=== PATIENT | male | born 1975 | race Caucasian/White ===

== ENCOUNTER 2018-01-27 19:31 | Emergency (ER) | payer OTHER ==
[~2018-01-27] VITALS: Ht 175.3 cm; Wt 136.1 kg
[~2018-01-27 19:31] MED LIST: ALBU90OI INH; AZIT250 PO; BUPR100 PO; CLARITIN10 MG PO; CYCL10 PO; Cipro500 MG PO; Cyclobenzaprine5 MG PO; HYDACE10B PO; Metformin HCl500 MG PO; NAPR500 PO; Norco 5-325 Ta1 EACH PO; TYLENOL PRN
[2018-01-27 20:14] LABS: Influenza A Negative (NEGATIVE); Influenza B Negative (NEGATIVE)
[2018-01-27] MEDS ORDERED: PRED20 PO (21:52)
[2018-01-27] MEDS ORDERED: BENZ100A PO (21:52)
[2018-01-27] MEDS ORDERED: Zithromax250 MG PO (21:52)
== END 2018-01-27 22:00 | disposition home or self-care (01) ==
LOC: ER 19:31
PROVIDERS: Emergency Medicine
DX: J45.901 Unspecified asthma with (acute) exacerbation (principal); J18.9 Pneumonia, unspecified organism; E11.9 Type 2 diabetes mellitus without complications; Z88.2 Allergy status to sulfonamides; Z87.891 Personal history of nicotine dependence
CPT/HCPCS: 71046; 87804; 94640; 99283